=== PATIENT | female | born 1985 | race Two or more races ===

== ENCOUNTER 2018-04-18 10:00 | Emergency (ER) | payer OTHER ==
[~2018-04-18] VITALS: Ht 157.5 cm; Wt 79.8 kg
== END 2018-04-18 16:16 | disposition home or self-care (01) ==
LOC: ER 10:00
DX: K52.89 Other specified noninfective gastroenteritis and colitis (principal)

== ENCOUNTER 2024-08-02 13:26 | Emergency (ER) | payer OTHER ==
[~2024-08-02] VITALS: Ht 162.6 cm; Wt 84.8 kg
[2024-08-02] MEDS ORDERED: 0.9 % SODIUM CHLORIDE 1,000 ML IV ONE (15:15)
[2024-08-02] MEDS ORDERED: FAMOTIDINE/PF 20 MG/2 ML VIAL IV PUSH ONE (15:15)
[2024-08-02] MEDS ORDERED: ONDANSETRON HCL 2 MG/ML VIAL IV ONE (15:15)
[2024-08-02] MEDS ORDERED: ONDANSETRON HCL 2 MG/ML VIAL ONE (15:18)
[2024-08-02] MEDS ORDERED: FAMOTIDINE/PF 20 MG/2 ML VIAL ONE (15:18)
[2024-08-02 15:41] LABS: HEMATOCRIT 40.2 % (36.0-45.00); HEMOGLOBIN 13.5 g/dL (12.0-15.00); MEAN CORPUSCULAR HEMOGLOBIN 28.2 pg (27.00-32.0); MEAN CORPUSCULAR HGB CONC 33.6 g/dl (32.0-36.0); PLATELET COUNT 485 K/uL (150-450); RED BLOOD COUNT 4.78 M/uL (4.00-6.00); RED CELL DISTRIBUTION WIDTH 14.5 % (11.5-14.5)
[2024-08-02 16:17] LABS: ALBUMIN 3.7 gm/dL (3.4-5.0); ALKALINE PHOSPHATASE 77 U/L (50-136); ALT/SGPT 21 U/L (12-78); AMYLASE 44 U/L (25-115); ANION GAP 7 (10.0-20.0); AST/SGOT 18 U/L (15-37); BILIRUBIN TOTAL 0.58 mg/dL (0.3-1.2); BLOOD UREA NITROGEN 9 mg/dL (7-18); BUN CREA RATIO 10 (7.0-25.0); CALCIUM 9.1 mg/dL (8.5-10.1); CARBON DIOXIDE 32 mEq/L (21-32); CHLORIDE 106 mmol/L (98-107); CREATININE SERUM 0.86 mg/dL (0.55-1.02); GFR 73.46; GLOBULINA 4.2 G/DL (2.4-3.5); GLUCOSE FASTING 92 mg/dL (65-100); LIPASE 32 U/L (13-75); OSMOLALITY SERUM 280 MOSM/KG (275-295); POTASSIUM 3.62 mEq/L (3.5-5.1); SODIUM 141 mmol/L (136-145); TOTAL PROTEIN 7.9 gm/dL (6.4-8.2)
[2024-08-02 16:32] LABS: HCG QUANTITATIVE < 1 mUI/mL (1-3)
[2024-08-02] MEDS ORDERED: PEPCID AC20 MG PO (16:48)
[2024-08-02] MEDS ORDERED: ZOFRAN8 MG PO (16:48)
== END 2024-08-02 17:03 | disposition home or self-care (01) ==
LOC: ER 13:26
PROVIDERS: General Practice
DX: R11.2 Nausea with vomiting, unspecified (principal)